=== PATIENT | male | born 1970 | race Caucasian/White ===

== ENCOUNTER 2021-08-31 06:06 | Day surgery (SDC) | payer BC ==
[~2021-08-31] VITALS: Ht 185.4 cm; Wt 99.9 kg
[~2021-08-31 06:06] MED LIST: CEPH500 PO; HYDACE5 PO; Naltrexone HCl50 MG PO; OVIDREL250 MCG/0. SC; OXYACE5T PO; TESTOSTERO200 MG/1 M IM
--- NOTE | 2021-08-31 11:42 | NUR ---
Patient up to Ambulate independently. Gait steady. Dressing to procedure site clean, dry, intact with no visible drainage, swelling, erythema or bruising noted. Patient States Post-Procedure ride home has been arranged. Discharged via wheelchair to private car for ride home. ABD BINDER IN PLACE. IBUPROFEN PRESCRIPTION FROM DR HOLLIDAY CALLED KAYLIE RODRIGUEZ PER PT REQUEST. ALL BELONINGS RETURNED.
--- NOTE | 2021-08-31 11:43 | NUR ---
GAVE ONE NORCO PER ORDER.
--- NOTE | 2021-09-02 08:57 | NUR ---
09/02/21 0857 Stella Celis VERIFICATIONS: EDIT CHART.
== END 2021-08-31 12:00 | disposition home or self-care (01) ==
LOC: ORSCMMR 06:06 → ORD 07:30 → ORSCMMR 07:30
PROVIDERS: Surgery
PROC: 0WQF0ZZ Repair Abdominal Wall, Open Approach (ICD-10-PCS; principal; 2021-08-31 07:30)
DX: K42.9 Umbilical hernia without obstruction or gangrene (principal); E03.9 Hypothyroidism, unspecified; Z79.899 Other long term (current) drug therapy
CPT/HCPCS: A9270; J0690; J1885; J2250; J3010; J7120

== ENCOUNTER 2022-02-10 09:29 | Day surgery (SDC) | payer BC ==
[~2022-02-10] VITALS: Ht 185.4 cm; Wt 97.4 kg
[2022-02-10] MEDS ORDERED: TADA10TA (10:01)
== END 2022-02-10 11:31 | disposition home or self-care (01) ==
LOC: ORSCSDS 09:29
PROVIDERS: Internal Medicine Gastroenterology
PROC: 0DBN8ZX Excision of Sigmoid Colon, Via Natural or Artificial Opening Endoscopic, Diagnostic (ICD-10-PCS; principal; 2022-02-10 10:45)
DX: Z12.11 Encounter for screening for malignant neoplasm of colon (principal); D12.5 Benign neoplasm of sigmoid colon; K57.30 Diverticulosis of large intestine without perforation or abscess without bleeding; K64.8 Other hemorrhoids; Z83.71 Family history of colonic polyps; E06.3 Autoimmune thyroiditis; E29.1 Testicular hypofunction; Z87.891 Personal history of nicotine dependence
CPT/HCPCS: 88305; J2704; J7120